=== PATIENT | female | born 1960 | race Caucasian/White ===

== ENCOUNTER 2019-05-19 08:17 | Day surgery (SDC) | payer OTHER ==
[2019-05-19] MEDS ORDERED: MIDAZOLAM 2 MG/2 ML VIAL IVP ONE (08:18)
[2019-05-19] MEDS ORDERED: fentaNYL 100 MCG/2 ML VIAL IVP ONE (08:18)
[2019-05-19] MEDS ORDERED: PROPOFOL 200 MG/20 ML VIAL IVP ONE (08:18)
[2019-05-19] MEDS ORDERED: LABETALOL 5 MG/1 ML 20 ML MDV IV ONE (08:18)
[2019-05-19] MEDS ORDERED: DEXAMETHASONE 4 MG/ML VIAL IVP ONE (08:18)
[2019-05-19] MEDS ORDERED: LACTATED RINGERS 1,000 ML IV ONE ×2 (08:23→12:30)
[2019-05-19] MEDS ORDERED: AMPICILLIN/SULBACTAM 3 GM in SODIUM CHLORIDE 0.9% MINIBAG 100 ML IV STA ×2 (08:36→17:06)
--- NOTE | 2019-05-19 09:12 | ANESTHESIA ---
Pre-Anesthesia VS, & Labs - Is Patient ?: Not Applicable <Jonna Chavez E - Last Filed: 05/19/19 09:10> - Is Patient ?: No (hysterectomy) <Justin Robles P - Last Filed: 05/19/19 09:48> - Diagnosis TMJ syndrome (Jonna Chavez) - Procedure TMJ arthroplasty (Jonna Chavez) Vital Signs: Temp Pulse Resp BP Pulse Ox 36.3 C L 79 12 125/98 H 95 05/19/19 08:24 05/19/19 08:24 05/19/19 08:24 05/19/19 08:24 05/19/19 08:24 Height 5 ft 4 in Weight (kg) 80.3 kg Home Medications and Allergies <Jonna Chavez E - Last Filed: 05/19/19 09:10> <Justin Robles P - Last Filed: 05/19/19 09:48> Home Medications: Ambulatory Orders Lisinopril/Hydrochlorothiazide [Lisinopril-Hctz 10-12.5 mg Tab] 1 tab PO DAILY 05/16/19 Sumatriptan Succinate [Imitrex] 50 mg PO PRN PRN 05/16/19 Venlafaxine ER [Effexor ER] 75 mg PO DAILY 05/16/19 raNITIdine HCl [Zantac] 150 mg PO DAILY 05/19/19 Lisinopril/Hydrochlorothiazide [Lisinopril-Hctz 10-12.5 mg Tab] 1 tab PO DAILY 05/16/19 Sumatriptan Succinate [Imitrex] 50 mg PO PRN PRN 05/16/19 Venlafaxine ER [Effexor ER] 75 mg PO DAILY 05/16/19 raNITIdine HCl [Zantac] 150 mg PO DAILY 05/19/19 Allergies/Adverse Reactions: Allergies Allergy/AdvReac Type Severity Reaction Status Date / Time acetaminophen [From Percocet] Allergy Edema Verified 05/16/19 13:25 amlodipine [From Norvasc] Allergy Unknown Verified 05/19/19 08:45 oxycodone [From Percocet] Allergy Edema Verified 05/16/19 13:25 Anes History & Medical History - Medical History Cardiovascular: reports: Hypertension Pulmonary: reports: None Gastrointestinal: reports: GERD Urinary: reports: None Musculoskeletal: reports: None Endocrine/Autoimmune: reports: None Skin: reports: None - Surgical History General: Appendectomy Eyes Ears Nose Throat (EENT): Tonsil/Adenoidectomy Gynecologic: Hysterectomy <Jonna Chavez E - Last Filed: 05/19/19 09:10> - Anesthetic History Anesthesia Complications: reports: No previous complications Family history of Anesthesia Complications: Denies Family history of Malignant Hyperthermia: Denies - Medical History Cardiovascular: reports: Hypertension <Justin Robles P - Last Filed: 05/19/19 09:48> Exam General: Alert, Oriented x3 Dental: TMJ Mouth Openin Fingerbreadth Neck Mobility: Normal Mallampati classification: II Thyromental Distance: 4-6 cm Respiratory: Lungs clear, Normal breath sounds, No respiratory distress Cardiovascular: Regular rate Neurological: Normal speech Mental/Cognitive Status: Alert/Oriented X3, Normal for patient Cognitive Status: Within normal limits <Justin Robles P - Last Filed: 05/19/19 09:48> Plan Anesthesia Type: General Code Status: Attempt Resuscitation Is this case an emergency?: No <Jonna Chavez E - Last Filed: 05/19/19 09:10> Anesthesia Type: General (nasal ANTONIO, both nostrils patent) Consent for Procedure(s) Verified and Reviewed: Yes Code Status: Attempt Resuscitation ASA classification: 2-Mild systemic disease Is this case an emergency?: No <Justin Robles P - Last Filed: 05/19/19 09:48>
[2019-05-19] MEDS ORDERED: OXYMETAZOLINE HCL 100 SPRAYS BOTTLE NAS ONE (10:06)
[2019-05-19] MEDS ORDERED: BACITRACIN ZINC OINT 14 GM TOP ONE (10:55)
[2019-05-19] MEDS ORDERED: BACITRACIN 50,000 UNIT VIAL ONE (10:56)
[2019-05-19] MEDS ORDERED: CHLORHEXIDINE GLUCONATE 15 ML UDC PO ONE (10:59)
[2019-05-19] MEDS ORDERED: EPINEPHrine 1 MG/ML AMP ONE (11:35)
[2019-05-19] MEDS: LIDOCAINE MPF 2%-EPI 1:200000 20 ML VIAL ONE ×2 (13:04→17:24)
[2019-05-19] MEDS ORDERED: HYDROcod/ACETAM 10 MG/325 MG TABLET PO PRN (17:55)
[2019-05-19] MEDS: ONDANSETRON 4 MG/2 ML VIAL IVP PRN ×2 (18:06→22:12)
[2019-05-19] MEDS: HYDROmorphone 1 MG/ML CARPUJECT IVP PRN ×2 (19:19→22:12)
--- NOTE | 2019-05-19 19:24 | OPERATIVE REPORT ---
DATE OF SERVICE: 05/19/2019 Physician: Lamin Melara DDS PROCEDURE PERFORMED: Total joint arthroplasty of the left temporomandibular joint with prosthetic implant. PREOPERATIVE DIAGNOSES 1. Osteoarthritis of the left temporomandibular joint. 2. Trismus. 3. Jaw pain. POSTOPERATIVE DIAGNOSES 1. Osteoarthritis of the left temporomandibular joint. 2. Trismus. 3. Jaw pain. PRIMARY SURGEON: Lamin Melara DDS OPERATIONAL ASSISTANT: Thais. BACK ROLLER: LUIZ Coyle. ANESTHESIA TYPE: General anesthesia via nasal endotracheal intubation. IMPLANTS: Biomet total joint arthroplasty implants were used. The left medium fossa was used. The left 50 mm standard condylar component was used. Six standard bone screws were placed in the mandibular component, and 6 standard bone screws were placed in the fossa component. SPECIMENS: A deformed piece of scar tissue and disk was sent to pathology. ESTIMATED BLOOD LOSS: 200 mL INDICATIONS FOR PROCEDURE: This is a 58-year-old female who presented to my office with left jaw pain and trismus, with frequent locking episodes. Clinical and radiographic examination was consistent with [id number] osteoarthritis of the left TMJ. It was decided that a total joint arthroplasty was indicated. The risks, benefits, and alternatives of this plan were discussed with the patient, including pain, swelling, bleeding, infection, failure of the hardware, scarring, nerve damage, malocclusion, nonunion, malunion, need for further surgeries, and continuation of her TMJ pain and trismus. Adequate time was given to answer all questions and informed consent was obtained. DESCRIPTION OF PROCEDURE: The patient was brought to the main operating room and placed in a supine position on the operating table. General anesthesia was induced by the anesthesia team, and the airway was secured with a nasal endotracheal tube in the right naris. The tube was secured to the septum with a transseptal suture. The eyes were protected with Tegaderms. Prior to prepping and draping, a formal timeout was executed. A throat pack was placed. A Ashley catheter was placed by the nursing staff. The hybrid intermaxillary fixation was placed on the maxilla and the mandible with 4 screws on each. The patient's occlusion was checked and rechecked and found to be stable and repeatable. At this point, the patient was prepped and draped in the standard sterile fashion for a total joint arthroplasty. Attention was directed to the left temporomandibular joint preauricular area, 1:50,000 epinephrine was then injected subcutaneously, and a nerve stimulator was used throughout the dissection to avoid damaging the facial nerves. A skin incision was made with a 15 blade in the left preauricular area. At the top of the incision, an anterior release was made. The temporalis muscle was identified with blunt dissection and electrocautery was used to complete the dissection inferiorly to the point of the zygomatic arch. A combination of blunt dissection and electrocautery was then used to finish the preauricular incision and approach to the temporomandibular joint capsule. The approach was difficult even though it was done very posterior and in a very cartilaginous way. The problem with the approach was that there were several blood vessels in the field of the approach, and they could not be controlled with electrocautery or with a bipolar because of the proximity of the facial nerve. Instead, it was necessary to isolate them and hold pressure, and then resume the surgery. However, the approach was completed without any complications and without any unusual difficulty the joint space was entered. The left submandibular approach was actually completed prior to the preauricular approach, and for this approach the skin was incised in a skin fold with a 15 blade. Sharp dissection down to the platysma was performed. The platysma was sharply. Subplatysmal layers were dissected bluntly down to the layer of the superficial layer of the deep cervical fascia that invests the submandibular salivary gland. This was incised after nerve stimulation. The mandibular branch of the facial nerve was identified and it actually needed to be retracted anteriorly. With it retracted anteriorly, making our incision more of a retromandibular approach, we were able to then dissect down the rest of the way through the submandibular salivary gland and all the way to the pterygomasseteric sling. The pterygomasseteric sling was incised sharply. A #9 was used to strip the masseter muscle off the lateral border of the mandible up to the area of the condyle, combining this approach with the other approach, which was actually completed after this approach was completed. Now that the approaches were completed, we redirected our attention to the preauricular incision, where we placed condylar neck retractors, and with a bone clamp on the inferior border of the mandible we removed the condylar head. After it was removed with a rotary instrument and a T-bar osteotome, it was then delicately picked out with a #1 and with a Bovie. The head was taken out and discarded. Then, the neck was removed in two more phases, both times repeating the same procedure as previous with the condylar neck retractors and using the bone clamp to position the mandibular neck and the subcondylar area up into the field of view. A large amount of scar tissue was built up in the joint space, and was removed and a portion submitted. Now, with both of them removed, the surface was smoothed with a reciprocating rasp. With the bone smooth and copiously irrigated, it was time to change the topography of the fossa. This was done with a reciprocating rasp as well, and it was done parallel to the fascial plane. With the eminence adequately reduced, the trial fossa was placed, and adequate clearance from the mandibular component was confirmed. A medium sized fossa was then opened, placed into the joint, and secured with 2 screws. The condylar component was then trialed; however, prior to trialing the condylar component, it was necessary to go back into the patient's mouth and place intermaxillary fixation. Intermaxillary fixation was placed under good visualization with a light. The tongue was out of the way, so that good intermaxillary fixation could be placed. Now with the intermaxillary fixation placed, scrub was broken, rescrubbed and back into the case. After I rescrubbed back in the case, attention was directed back to the left submandibular incision and the mandibular component was trialed. The size decided on was a 58 mm standard left component, keeping in mind the necessity of paralleling the posterior aspect of the mandibular border of the mandibular ramus. The condyle sat slightly posterior in the fossa. This was an acceptable position for the condyle. It was secured into place with bone screws x2. After bone screws were secured into place, attention was directed back in the mouth and intermaxillary fixation was released. With intermaxillary fixation released, we could verify that her occlusion was stable and repeatable. Scrub was broken again, and after rescrubbing, attention was directed back to the left preauricular incision. The fossa was secured with 4 mm bone screws, and then the mandibular component was secured with 4 more bone screws. The entire site was irrigated with copious amounts of bacitracin impregnated sterile saline. Then the deep layers were closed with 4-0 Vicryl suture on both approaches, and the superficial layers were closed with 5-0 Prolene suture. It should be noted that early in the case during the approach, it was necessary to use Surgiflo to control the bleeding. However, during closure, the case was found to be very hemostatic. The care of the patient was returned to the anesthesia team. The transseptal suture was removed. The throat pack was removed. The eyes were rinsed, and the face was cleansed. The patient was extubated uneventfully and emerged from anesthesia without difficulty. She was transferred to the PACU in stable condition. COMPLICATIONS: None. TD: 05/19/2019 18:31 BELEM
[2019-05-19] MEDS: IBUPROFEN 600 MG TABLET PO SCH (22:00)
[2019-05-19] MEDS ORDERED: ONDANSETRON 4 MG/2 ML VIAL IVP PRN (22:02)
[2019-05-19] MEDS ORDERED: SODIUM CHLORIDE FLUSH 0.9% 10 ML SYRINGE ONE (22:21)
[2019-05-19] MEDS: AMOX/CLAV 875 MG/125 MG TABLET PO SCH (22:22)
[2019-05-19] MEDS: CHLORHEXIDINE GLUCONATE 15 ML UDC PO SCH (22:22)
[2019-05-20] MEDS ORDERED: SODIUM CHLORIDE FLUSH 0.9% 10 ML SYRINGE ONE ×2 (00:12→03:38)
[2019-05-20] MEDS: HYDROmorphone 1 MG/ML CARPUJECT IVP PRN ×2 (03:29→07:45)
[2019-05-20] MEDS: SODIUM CHLORIDE FLUSH 0.9% 10 ML SYRINGE IVP PRN ×2 (03:32→07:45)
[2019-05-20] MEDS: IBUPROFEN 600 MG TABLET PO SCH (06:51)
[2019-05-20] MEDS: ONDANSETRON 4 MG/2 ML VIAL IVP PRN (07:45)
[2019-05-20 08:01] VITALS: BP 122/66
[2019-05-20] MEDS: CHLORHEXIDINE GLUCONATE 15 ML UDC PO SCH (08:29)
[2019-05-20] MEDS: AMOX/CLAV 875 MG/125 MG TABLET PO SCH (08:29)
== END 2019-05-20 08:54 | disposition home or self-care (01) ==
LOC: SDS 08:17 → OBS 17:49 → SDS 05-20 08:54
PROVIDERS: ATTEND Dentist Oral and Maxillofacial Surgery
PROC: 0RRD0JZ Replacement of Left Temporomandibular Joint with Synthetic Substitute, Open Approach (ICD-10-PCS; principal; 2019-05-19 09:30)
DX: M26.69 Other specified disorders of temporomandibular joint (principal); R68.84 Jaw pain; M26.53 Deviation in opening and closing of the mandible; I10 Essential (primary) hypertension; K21.9 Gastro-esophageal reflux disease without esophagitis
CPT/HCPCS: 21243; A9270; C1713; C1776; J1170; J7120